=== PATIENT | male | born 1950 | race Caucasian/White ===

== ENCOUNTER → 2023-03-13 | Outpatient (CLI) | payer OTHER | END | disposition home or self-care (01) | LOC: MRI 00:34 | PROVIDERS: ATTEND Physician Assistant | DX: S83.242A Other tear of medial meniscus, current injury, left knee, initial encounter (principal); M79.89 Other specified soft tissue disorders; S83.412A Sprain of medial collateral ligament of left knee, initial encounter; M70.862 Other soft tissue disorders related to use, overuse and pressure, left lower leg; S83.8X2A Sprain of other specified parts of left knee, initial encounter; M76.52 Patellar tendinitis, left knee; M25.462 Effusion, left knee; M25.862 Other specified joint disorders, left knee; M17.12 Unilateral primary osteoarthritis, left knee; M25.762 Osteophyte, left knee; M22.42 Chondromalacia patellae, left knee; X58.XXXA Exposure to other specified factors, initial encounter; Y93.89 Activity, other specified; Y92.89 Other specified places as the place of occurrence of the external cause; Y99.8 Other external cause status ==